=== PATIENT | male | born 1970 | race Caucasian/White ===

== ENCOUNTER 2017-11-29 11:11 | Emergency (ER) | payer OTHER ==
[2017-11-29 11:26] VITALS: BP 116/78; PULSE 80; TEMP 98; BMI 34.3
[2017-11-29] MEDS ORDERED: RANITIDINE HCL 150 MG TABLET (FP) PO ONE (11:52)
[2017-11-29] MEDS ORDERED: DEXAMETHASONE LIQUID 0.5 MG/5 ML 240 ML BULK BOTTLE PO ONE (11:52)
[2017-11-29] MEDS ORDERED: diphenhydrAMINE HCL 25 MG CAPSULE (FP) PO ONE ×2 (11:52→11:59)
--- NOTE | 2017-11-29 11:57 | PDOC ---
History of Present Illness - General Chief Complaint: Allergic Reaction Stated Complaint: ALLERGIC RXN, RASH Time Seen by Provider: 11/29/17 11:43 - History of Present Illness Initial Comments: 47-year-old male presents for evaluation of one hours worth of developing rash on bilateral arms. He states about 4 AM this morning he drank an energy drink that the only thing different he's done after that the rash developed. He has no other associated symptoms no shortness of breath chest pain fever chills or wheezing. Past medical history of gout and dyslipidemia he takes fenofibrate and colchicine. ALLERGIES to sulfa. 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4, VALVE) COPD: No Hypercholesterolemia: Yes Other medical history: GOUT - Surgical History Cardiac Surgery: Yes (OPEN HEART AT AGE OF 4, VALVE REPAIR) - Suicide/Smoking/Psychosocial Hx Smoking History: Never smoked Have you smoked in the past 12 months: No Hx Alcohol Use: No Drug/Substance Use Hx: No Substance Use Type: None Review of Systems - Review of Systems Integumentary: Yes: See HPI, Pruritus, Rash All Other Systems: Reviewed and Negative *Physical Exam - Vital Signs Last Vital Signs Temp Pulse Resp BP Pulse Ox 98 F 80 19 116/78 95 11/29/17 11:23 11/29/17 11:23 11/29/17 11:23 11/29/17 11:23 11/29/17 11:23 - Physical Exam Comments: GENERAL: The patient is awake, alert, and fully oriented, in no acute distress. HEAD: Normal with no signs of trauma. EYES: Pupils equal, round and reactive to light, extraocular movements intact, sclera anicteric, conjunctiva clear. ENT: Ears normal, nares patent, oropharynx clear without exudates. Moist mucous membranes. NECK: Normal range of motion, supple without lymphadenopathy, JVD, or masses. LUNGS: Breath sounds equal, clear to auscultation bilaterally. No wheezes, and no crackles. HEART: Regular rate and rhythm, normal S1 and S2 without murmur, rub or gallop. ABDOMEN: Soft, nontender, normoactive bowel sounds. No guarding, no rebound. No masses. EXTREMITIES: Normal range of motion, no edema. No clubbing or cyanosis. No cords, erythema, or tenderness. NEUROLOGICAL: Cranial nerves II through XII grossly intact. Normal speech, normal gait. PSYCH: Normal mood, normal affect. SKIN: Warm, Dry, normal turgor, minimal hives on bilateral forearms.. 11/29/17 11:54 Medical Decision Making - Medical Decision Making This new rash may represent a mild ALLERGY to an energy drink he's consumed. I' ll treat him in the emergency room with steroids and Benadryl as well as an H2 alexsandra. Have him follow-up with his primary care physician. 11/29/17 11:54 11/29/17 12:20 He was reassessed after administration of Benadryl and Zantac and Decadron his rash is slowly clearing. He's improving. *DC/Admit/Observation/Transfer Diagnosis at time of Disposition: Allergic reaction - Discharge Dispostion Disposition: HOME Condition at time of disposition: Improved Decision to Admit order: No - Prescriptions Prescriptions: Diphenhydramine HCl [Benadryl -] 25 mg PO Q6H #28 capsule - Referrals Referrals: Juana Quarles MD [Primary Care Provider] - - Patient Instructions Printed Discharge Instructions: DI for General Allergic Reactions Additional Instructions: I prescribed for you a antihistamine Benadryl. [facility] to Follow-up with your primary care physician in the next 1-2 day. You were given a dose of oral steroids, Benadryl, as well as Zantac Feer ALLERGIC reaction. - Post Discharge Activity
[2017-11-29] MEDS ORDERED: DEXAMETHASONE SOD PHOSPHATE 10 MG/1 ML VIAL ONE (11:58)
[2017-11-29] MEDS ORDERED: RANITIDINE HCL 150 MG TABLET (FP) ONE (11:59)
== END 2017-11-29 12:24 | disposition home or self-care (01) ==
LOC: JERFT 11:11
DX: T78.1XXA Other adverse food reactions, not elsewhere classified, initial encounter (principal)
CPT/HCPCS: 99281-25

== ENCOUNTER 2021-01-10 05:22 | Day surgery (SDC) | payer OTHER ==
[2021-01-08 10:23] VITALS: BMI 34.2
[2021-01-10] MEDS ORDERED: ceFAZolin SODIUM 1 GM VIAL IVPB ONE (12:26)
[2021-01-10] MEDS ORDERED: MIDAZOLAM HCL 2 MG/2 ML SINGLE DOSE VIAL ONE (12:27)
[2021-01-10] MEDS ORDERED: PROPOFOL 20 ML ONE ×3 (12:27)
[2021-01-10] MEDS ORDERED: ceFAZolin SODIUM 1 GM VIAL ONE (12:31)
[2021-01-10] MEDS ORDERED: DEXAMETHASONE SOD PHOSPHATE 4 MG/1 ML VIAL ONE (12:33)
[2021-01-10] MEDS ORDERED: BUPIVACAINE HCL/PF 0.5% (5MG/ML) 10 ML VIAL IJ ONE (12:36)
[2021-01-10] MEDS ORDERED: PHENYLEPHRINE HCL 10 MG/1 ML SINGLE DOSE VIAL ONE (12:49)
[2021-01-10] MEDS ORDERED: oxyCODONE HCL 5 MG TABLET PO PRN (12:57)
[2021-01-10] MEDS ORDERED: ONDANSETRON 4 MG/2 ML VIAL IVPUSH PRN (12:57)
[2021-01-10] MEDS ORDERED: LACTATED RINGERS SOLUTION 1,000 ML IV SCH (13:00)
[2021-01-10 15:04] VITALS: BP 119/81; PULSE 83; TEMP 96.2
== END 2021-01-10 15:06 | disposition home or self-care (01) ==
LOC: JASU-SURG 05:22
PROVIDERS: ATTEND Surgery
PROC: 0JB70ZZ Excision of Back Subcutaneous Tissue and Fascia, Open Approach (ICD-10-PCS; principal; 2021-01-10 11:30)
DX: D21.6 Benign neoplasm of connective and other soft tissue of trunk, unspecified (principal)
CPT/HCPCS: 88304-TC